=== PATIENT | female | born 1985 ===

== ENCOUNTER 2016-09-21 19:26 | Emergency (ER) | payer OTHER ==
[2016-09-21 19:37] VITALS: BP 132/77; RESP 16; TEMP 98.9; O2SAT 100
[2016-09-21] MEDS ORDERED: Oxycodone/Acetaminophen 5/325 mg Tab PO STA (19:59)
[2016-09-21] MEDS ORDERED: Oxycodone/Acetaminophen 5/325 mg Tab ONE (20:06)
--- NOTE | 2016-09-21 20:09 | ED PDOC ---
Upper Extremity Pain/Injury Time Seen by Provider: 09/21/16 19:41 Chief Complaint (Nursing): Upper Extremity Problem/Injury Chief Complaint (Provider): Right arm pain History Per: Patient History/Exam Limitations: no limitations Onset/Duration Of Symptoms: Days (x3 weeks) Current Symptoms Are (Timing): Still Present Severity: Moderate Pain Scale Rating Of: 4 Additional Complaint(s): Car Espitia is a 31 year old female who presents to the emergency department with a complaint of "shooting" right arm pain associated with constant numbness and tingling sensation radiating from her right hand ongoing for 3 weeks. Denied any swelling, headache, weakness, slurred speech, chest pain or taking medication for symptoms relief. 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 PMD: none provided Past Medical History Reviewed: Historical Data, Nursing Documentation, Vital Signs Vital Signs: Last Vital Signs Temp 98.9 F 09/21/16 19:34 Pulse 92 H 09/21/16 19:34 Resp 16 09/21/16 19:34 BP 132/77 09/21/16 19:34 Pulse Ox 100 09/21/16 19:34 - Medical History PMH: No Chronic Diseases - Surgical History Surgical History: No Surg Hx - Family History Family History: States: Unknown Family Hx - Home Medications Home Medications: Ambulatory Orders Medication Instructions Recorded Methylprednisolone [Medrol Dose 4 mg PO ASDIR #21 mg 09/21/16 Pack (21 tabs)] oxyCODONE/Acetaminophen [Percocet 1 ea PO Q6 PRN #10 tab 09/21/16 5/325 mg Tab] - Allergies Allergies/Adverse Reactions: Allergies Allergy/AdvReac Type Severity Reaction Status Date / Time No Known Allergies Allergy Verified 09/21/16 19:31 Review of Systems ROS Statement: Except As Marked, All Systems Reviewed And Found Negative Cardiovascular: Negative for: Chest Pain Musculoskeletal: Positive for: Arm Pain (right "shooting" pain). Negative for: Other (swelling) Neurological: Positive for: Numbness (and tingling sensation of right hand radiating to right shoulder). Negative for: Weakness, Headache, Other (slurred speech) Physical Exam - Reviewed Nursing Documentation Reviewed: Yes Vital Signs Reviewed: Yes - Physical Exam Appears: Positive for: Well, Non-toxic, No Acute Distress Head Exam: Positive for: ATRAUMATIC, NORMAL INSPECTION, NORMOCEPHALIC Skin: Positive for: Normal Color, Warm, DRY Neck: Positive for: Normal, Painless ROM, Supple Cardiovascular/Chest: Positive for: Regular Rate, Rhythm Respiratory: Positive for: CNT, Normal Breath Sounds Extremity: Positive for: Normal ROM. Negative for: Tenderness, Swelling Neurologic/Psych: Positive for: Alert, transfer and pumphouse operator chief II-XII, Oriented - ECG ECG: Positive for: Interpreted By Me, Viewed By Me ECG Rhythm: Positive for: Normal QRS, Normal ST Segment, Sinus Rhythm. 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 Provider Scribe Attestation: All medical record entries made by the Scribe were at my direction and personally dictated by me. I have reviewed the chart and agree that the record accurately reflects my personal performance of the history, physical exam, medical decision making, and the department course for this patient. I have also personally directed, reviewed, and agree with the discharge instructions and disposition. Disposition - Clinical Impression Clinical Impression: Arm paresthesia, right - Patient ED Disposition Is Patient to be Admitted: No Doctor Will See Patient In The: Office Counseled Patient/Family Regarding: Studies Performed, Diagnosis, Need For Followup - Disposition Referrals: [facility] [Outside] Disposition: Routine/Home Disposition Time: 21:26 Condition: GOOD Additional Instructions: Take medications as instructed. Follow up with your PCP in 2-3 days. Prescriptions: Methylprednisolone [Medrol Dose Pack (21 tabs)] 4 mg PO ASDIR #21 mg oxyCODONE/Acetaminophen [Percocet 5/325 mg Tab] 1 ea PO Q6 PRN #10 tab PRN Reason: Pain, Severe (8-10) Instructions: Paresthesia (ED) Forms: [facility] ED School/Work Excuse Print Language: MALTESE
[2016-09-21 20:43] VITALS: PULSE 75
--- NOTE | 2016-09-22 16:15 | CARD ---
APPROVED REPORT EKG Measurement Heart [id number] <Conclusion> Normal sinus rhythm with sinus arrhythmia Normal ECG
== END 2016-09-21 21:44 | disposition home or self-care (01) ==
LOC: H.ER 19:26
DX: R20.2 Paresthesia of skin (principal)

== ENCOUNTER 2017-09-07 16:22 | Emergency (ER) | payer OTHER ==
[2017-09-07 17:24] VITALS: BP 105/65; PULSE 53; RESP 17; TEMP 98.2; O2SAT 100
--- NOTE | 2017-09-07 19:33 | ED PDOC ---
HPI: Female Pain Time Seen by Provider: 09/07/17 18:36 Chief Complaint (Nursing): Female Genitourinary Chief Complaint (Provider): Vaginal bleeding History Per: Patient History/Exam Limitations: no limitations Onset/Duration Of Symptoms: Days (30 days) Current Symptoms Are (Timing): Still Present Severity: Mild Pain Scale Rating Of: 5 Quality Of Discomfort: Cramping, "Pain" Associated Symptoms: Back Pain. denies: Fever, Chills, Nausea, Vomiting, Diarrhea, Urinary Symptoms Alleviating Factors: None Additional History Per: Patient Additional Complaint(s): a 32 yo female and no PMH present today due to vaginal bleeding that started 30 days ago. Pt state that she is having this heavy vaginal bleed that she need 10 pads a day. Pt state that she is having suprapubic pain that is intermittent occur when she bleed, 5 out of 10, pain is sharp like in . For the past 4 days she is feeling weak and dizzy and feel like she will fall. Pt state that her period is irregular but became worst and heavy in the past 6 month, her period is normally last 10 days and use 10 pads. Pt state that she is sexually active use condom inconsistent. Pt denies headache, change in vision, change in weight, nausea, vomit, diarrhea Chest pain, SOB, polyuria, dysuria, other vaginal discharge or lesions. Past Medical History Vital Signs: Last Vital Signs Temp 98.2 F 09/07/17 17:20 Pulse 53 L 09/07/17 17:20 Resp 17 09/07/17 17:20 BP 105/65 09/07/17 17:20 Pulse Ox 100 09/07/17 17:20 - Medical History PMH: No Chronic Diseases - Family History Family History: States: Unknown Family Hx - Home Medications Home Medications: Ambulatory Orders Medication Instructions Recorded Methylprednisolone [Medrol Dose 4 mg PO ASDIR #21 mg 09/21/16 Pack (21 tabs)] oxyCODONE/Acetaminophen [Percocet 1 ea PO Q6 PRN #10 tab 09/21/16 5/325 mg Tab] - Allergies Allergies/Adverse Reactions: Allergies Allergy/AdvReac Type Severity Reaction Status Date / Time No Known Allergies Allergy Verified 09/21/16 19:31 Review of Systems ROS Statement: Except As Marked, All Systems Reviewed And Found Negative Constitutional: Positive for: Weakness. Negative for: Fever, Chills Eyes: Negative for: Pain, Vision Change Cardiovascular: Negative for: Chest Pain, Palpitations, Light Headedness Respiratory: Negative for: Cough, Shortness of Breath, SOB with Exertion, Pleuritic Pain, Wheezing Gastrointestinal: Negative for: Nausea, Vomiting, Abdominal Pain, Diarrhea Genitourinary Female: Positive for: Vaginal Bleeding, Pelvic Pain. Negative for : Dysuria, Frequency, Incontinence, Hematuria, Vaginal Discharge, Rash Neurological: Positive for: Dizziness Physical Exam - Reviewed Nursing Documentation Reviewed: Yes Vital Signs Reviewed: Yes - Physical Exam Appears: Positive for: Non-toxic, No Acute Distress Head Exam: Positive for: ATRAUMATIC, NORMAL INSPECTION, NORMOCEPHALIC Skin: Positive for: Normal Color, Warm, Dry Eye Exam: Positive for: Normal appearance ENT: Positive for: Normal ENT Inspection Neck: Positive for: Normal Cardiovascular/Chest: Positive for: Regular Rate, Rhythm Respiratory: Positive for: Normal Breath Sounds. Negative for: Crackles, Rales , Rhonchi Gastrointestinal/Abdominal: Positive for: Normal Exam, Bowel Sounds, Soft, Tenderness (suprapubic area). Negative for: Organomegaly, Mass, Distended, Guarding Pelvic Exam: Positive for: External Exam Normal, No Cerv. Motion Tender, Blood, Tender W/Cervical Motion (on left), Other. 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
[2017-09-07 20:17] LABS: BASO # 0.1 K/uL (0.0-0.2); BASO % 0.6 % (0.0-2.0); EOS # 0.2 K/uL (0.0-0.7); EOS % 1.3 % (0.0-4.0); HEMOGLOBIN 13.4 g/dL (12.0-16.0); LYMPH # 3.6 K/uL (1.0-4.3); LYMPH % 29.3 % (20.0-40.0); MEAN CELL VOLUME 87.8 fl (81.0-99.0); MEAN CORPUSCULAR HEMOGLOBIN 29.8 pg (27.0-31.0); MEAN PLATELET VOLUME 8.8 fl (7.2-11.7); MONO # 0.8 K/uL (0.0-0.8); MONO % 6.2 % (0.0-10.0); NEUT # 7.6 K/uL (1.8-7.0); NEUT % 62.6 % (50.0-75.0); NRBC % 0.1 % (0.0-0.0); RBC 4.5 Mil/uL (3.80-5.20); RED CELL DISTRIBUTION WIDTH 13.8 % (11.5-14.5); WHITE BLOOD COUNT 12.2 K/uL (4.8-10.8)
[2017-09-07 20:24] LABS: ALB/GLOB RATIO 1.4 (1.0-2.1); ALBUMIN 4.4 g/dL (3.5-5.0); ALT/SGPT 58 U/L (9-52); AST/SGOT 41 U/L (14-36); BLOOD UREA NITROGEN 17 mg/dl (7-17); CALCIUM 9.7 mg/dL (8.4-10.2); GFR AFRICAN-AMERICAN > 60; GFR NON-AFRICAN AMERICAN > 60
[2017-09-07 20:30] LABS: PARTIAL THROMBOPLASTIN TIME 35.2 Seconds (25.6-37.1); PROTHROMBIN TIME 11.6 Seconds (9.8-13.1)
--- NOTE | 2017-09-08 09:00 | US ---
HISTORY: Suprapubic pain, menorrhagia COMPARISON: None available. TECHNIQUE: Grayscale, color Doppler and spectral evaluation the pelvis performed transvaginally FINDINGS: UTERUS: Measures 6.6 x 4.2 x 4.7 cm. Retroverted. Normal in size and appearance. No fibroid or other mass lesion seen. ENDOMETRIUM: Measures 3 mm in diameter. Unremarkable. CERVIX: No cervical abnormality identified. RIGHT OVARY: Measures 2.8 x 2.1 x 2.4 cm. No solid mass. Normal flow. LEFT OVARY: Measures 2.4 x 1.4 x 2.1 cm. No solid mass. Normal flow. FREE FLUID: No significant free fluid noted. OTHER FINDINGS: None. IMPRESSION: Unremarkable pelvic ultrasound.
== END 2017-09-07 22:47 | disposition home or self-care (01) ==
LOC: H.ER 16:22
DX: N92.0 Excessive and frequent menstruation with regular cycle (principal)

== ENCOUNTER 2017-09-20 16:37 | Emergency (ER) | payer OTHER ==
[2017-09-20 17:08] VITALS: TEMP 98
--- NOTE | 2017-09-20 18:54 | ED PDOC ---
HPI: Female Pain <Jocelyn Porras Y - Last Filed: 09/20/17 19:37> Chief Complaint (Provider): i think i may be History Per: Patient Onset/Duration Of Symptoms: Days Current Symptoms Are (Timing): Still Present Pain Scale Rating Of: 3 Quality Of Discomfort: Cramping Associated Symptoms: Nausea. denies: Vomiting Alleviating Factors: None Additional Complaint(s): 32 yo female with no significant known medical history presented to ED with complaint of suprapubic pain and also states "i don't know if i am or not." Pt states she took 4 preg tests at home, 1 was positive and 3 were negative. C/ o increased vaginal discharge and suprapubic pain. OB hx: , 1 NVD, C/s x2, 3 elective TOP. 1 male partner, uses condoms 70% of the time. Surg: C/s x2, 3 surgical TOP Menarche age 15, irregular periods, LMP 2 weeks ago No chronic medical issues No meds No allergies Denies tobacco alcohol drugs Family hx noncontributory Abnormal Vaginal Bleeding: No Last Menstral Period: 2 weeks ago : 6 Para: 3 Miscarriage: 3 (all 3 elective surg terminations) <Rohini Benitez - Last Filed: 09/20/17 20:10> <Jimmy Calix - Last Filed: 09/21/17 03:07> Time Seen by Provider: 09/20/17 17:29 Chief Complaint (Nursing): Abdominal Pain Supervising Attending Note - Attestation: I have personally seen and examined this patient.: Yes I have fully participated in the care of the patient.: Yes I have reviewed all pertinent clinical information, including history, physical exam and plan: Yes <Jimmy Calix - Last Filed: 09/21/17 03:07> Past Medical History Vital Signs: Last Vital Signs Temp 98.0 F 09/20/17 17:05 Pulse 65 09/20/17 17:05 Resp 18 09/20/17 17:05 BP 112/67 09/20/17 17:05 Pulse Ox 99 09/20/17 19:32 <Jocelyn Porras - Last Filed: 09/20/17 19:37> Vital Signs: Last Vital Signs Temp 98.0 F 09/20/17 17:05 Pulse 65 09/20/17 17:05 Resp 18 09/20/17 17:05 BP 112/67 09/20/17 17:05 Pulse Ox 99 09/20/17 17:05 - Surgical History Surgical History: (x2) Other surgeries: 3 elective TOP - Family History Family History: States: Unknown Family Hx - Social History Alcohol: None Drugs: Denies <Rohini Benitez - Last Filed: 09/20/17 20:10> Vital Signs: Last Vital Signs Temp 98.0 F 09/20/17 20:56 Pulse 80 09/20/17 20:56 Resp 16 09/20/17 20:56 BP 114/64 09/20/17 20:56 Pulse Ox 98 09/20/17 20:56 <Jimmy Calix - Last Filed: 09/21/17 03:07> - Home Medications Home Medications: Ambulatory Orders Medication Instructions Recorded Methylprednisolone [Medrol Dose 4 mg PO ASDIR #21 mg 09/21/16 Pack (21 tabs)] oxyCODONE/Acetaminophen [Percocet 1 ea PO Q6 PRN #10 tab 09/21/16 5/325 mg Tab] Ibuprofen [Motrin Tab] 600 mg PO Q6 #30 tab 09/20/17 - Allergies Allergies/Adverse Reactions: Allergies Allergy/AdvReac Type Severity Reaction Status Date / Time No Known Allergies Allergy Verified 09/21/16 19:31 Review of Systems Constitutional: Negative for: Fever, Chills ENT: Negative for: Throat Pain Cardiovascular: Negative for: Chest Pain, Palpitations Respiratory: Negative for: Cough, Shortness of Breath Gastrointestinal: Positive for: Nausea, Abdominal Pain. Negative for: Vomiting , Diarrhea, Constipation Genitourinary Female: Positive for: Dysuria, Frequency, Vaginal Discharge. Negative for: Hematuria, Vaginal Bleeding <Rohini Benitez - Last Filed: 09/20/17 20:10> Physical Exam - Reviewed Vital Signs Reviewed: Yes - Physical Exam Appears: Positive for: Non-toxic Skin: Positive for: Normal Color, Warm, Dry Eye Exam: Positive for: Normal appearance, PERRL ENT: Positive for: Pharynx Is (clear) Neck: Positive for: Supple Cardiovascular/Chest: Positive for: Regular Rate, Rhythm, Chest Non Tender Respiratory: Positive for: Normal Breath Sounds. Negative for: Accessory Muscle Use, Respiratory Distress Gastrointestinal/Abdominal: Positive for: Bowel Sounds, Soft, Tenderness ( suprapubic) Pelvic Exam: Positive for: External Exam Normal, Speculum Exam Normal, Bimanual Exam Normal, No Cerv. Motion Tender, Discharge, Other (speculum/bimanual exam done with cellophane bag machine operator Fay Ruiz in the room). Negative for: Active Bleeding Back: Negative for: L CVA Tenderness, R CVA Tenderness Extremity: Negative for: Tenderness, Deformity Neurologic/Psych: Positive for: Alert, Oriented, Other (no focal neuro deficits) <Rohini Benitez - Last Filed: 09/20/17 20:10> - Laboratory Results Result Diagrams: 09/20/17 18:45 09/20/17 18:45 <Jocelyn Porras - Last Filed: 09/20/17 19:37> - Laboratory Results Result Diagrams: 09/20/17 18:45 09/20/17 18:45 - ECG O2 Sat by Pulse Oximetry: 99 <Rohini Benitez - Last Filed: 09/20/17 20:10> - Laboratory Results Result Diagrams: 09/20/17 18:45 09/20/17 18:45 <Jimmy Calix - Last Filed: 09/21/17 03:07> Medical Decision Making Medical Decision Making: Patient reports to the ED complaining of suprapubic abdominal pain and is concerned for . She denies any vaginal bleeding. On exam patient has mild suprapubic tenderness <Jocelyn Porras Y - Last Filed: 09/20/17 19:37> Medical Decision Making: - Urine preg - Urine dip - bHCG - GC/CL cultures - UA - CBC - CMP Pelvic exam done with cellophane bag machine operator Fay Ruiz in the room. Exam grossly normal- no blood in vaginal vault, os closed. On bimanual exam, no cervical motion tenderness, adnexa nontender. Suprapubic tenderness as on abdominal exam. Some discharge was noted in vaginal vault, nonpurulent; cultures taken for gonorrhea and chlamydia testing given pt symptoms. - bHCG negative - UA neg nitrates and leuk esterase - C&S pending follow up Pt informed of results; verbalized understanding. Advised to f/u with PMD and OBGYN. Pt was seen/discussed with Dr. Porras and later, Dr. Calix. <Rohini Benitez - Last Filed: 09/20/17 20:10> Disposition <Jocelyn Porras - Last Filed: 09/20/17 19:37> - Patient ED Disposition Is Patient to be Admitted: No - Disposition Disposition: Routine/Home Disposition Time: 20:06 <Rohini Benitez - Last Filed: 09/20/17 20:10> <Jimmy Calix - Last Filed: 09/21/17 03:07> - Clinical Impression Clinical Impression: Abdominal pain - Disposition Referrals: [facility] [Outside] Condition: STABLE Additional Instructions: please follow up with PMD in 2-3 days return to ED if symptoms worsen or there is acute change in status Prescriptions: Ibuprofen [Motrin Tab] 600 mg PO Q6 #30 tab Instructions: Acute Abdomen (Belly Pain) Forms: [facility] (Lithuanian) Print Language: AMHARIC
[2017-09-20 18:59] LABS: BASO # 0.1 K/uL (0.0-0.2); BASO % 0.6 % (0.0-2.0); EOS # 0.2 K/uL (0.0-0.7); EOS % 1.3 % (0.0-4.0); HEMOGLOBIN 13.3 g/dL (12.0-16.0); LYMPH # 3.6 K/uL (1.0-4.3); LYMPH % 27.4 % (20.0-40.0); MEAN CELL VOLUME 88.4 fl (81.0-99.0); MEAN CORPUSCULAR HEMOGLOBIN 29.2 pg (27.0-31.0); MEAN CORPUSCULAR HGB CONC 33.1 g/dL (33.0-37.0); MEAN PLATELET VOLUME 9.1 fl (7.2-11.7); MONO # 0.8 K/uL (0.0-0.8); MONO % 6.4 % (0.0-10.0); NEUT # 8.5 K/uL (1.8-7.0); NEUT % 64.3 % (50.0-75.0); RBC 4.55 Mil/uL (3.80-5.20); RED CELL DISTRIBUTION WIDTH 13.2 % (11.5-14.5); WHITE BLOOD COUNT 13.2 K/uL (4.8-10.8)
[2017-09-20 19:01] LABS: SQUAMOUS EPITHIAL 5 /hpf (0-5); URINE BACTERIA RARE (<OCC); URINE BILIRUBIN NEGATIVE (NEGATIVE); URINE BLOOD NEGATIVE (NEGATIVE); URINE CLARITY SLIGHTY-CLOUDY (Clear); URINE COLOR STRAW (YELLOW); URINE GLUCOSE (UA) NEG (Normal); URINE LEUKOCYTE ESTERASE NEG Leu/uL (Negative); URINE PROTEIN NEGATIVE (NEGATIVE); URINE UROBILINOGEN 0.2-1.0 mg/dL (0.2-1.0)
[2017-09-20 19:16] LABS: ALB/GLOB RATIO 1.3 (1.0-2.1); ALBUMIN 4.5 g/dL (3.5-5.0); ALT/SGPT 27 U/L (9-52); AST/SGOT 23 U/L (14-36); BLOOD UREA NITROGEN 14 mg/dl (7-17); CALCIUM 9.5 mg/dL (8.4-10.2); GFR AFRICAN-AMERICAN > 60; GFR NON-AFRICAN AMERICAN > 60
[2017-09-20 20:57] VITALS: BP 114/64; PULSE 80; RESP 16; O2SAT 98
== END 2017-09-20 20:56 | disposition home or self-care (01) ==
LOC: H.ER 16:37
DX: O26.899 Other specified pregnancy related conditions, unspecified trimester (principal)

== ENCOUNTER 2017-11-19 16:57 | Emergency (ER) | payer MEDICAID, OTHER ==
[2017-11-19 17:24] VITALS: O2SAT 98
[2017-11-19] MEDS ORDERED: Lactated Ringer's 1,000 ML IV STA (17:52)
--- NOTE | 2017-11-19 18:35 | ED PDOC ---
HPI: Female Pain Time Seen by Provider: 11/19/17 17:38 Chief Complaint (Nursing): Female Genitourinary Chief Complaint (Provider): Female Genitourinary History Per: Patient History/Exam Limitations: no limitations Onset/Duration Of Symptoms: Days (x7) Current Symptoms Are (Timing): Still Present Additional Complaint(s): 32 y/o female with a PMHx of and 3 elective termination presents to the ED for evaluation of vaginal spotting, onset 7 days ago. Patient states that last week she noticed brown spotting that has been less than one pad a day but additionally states today it was more bright red. Patient reports of taking a test today and found that she was . Patient states that she has only felt lower abdominal swelling and urinary frequency, symptom barrow. Denies nausea, vomiting, breast discomfort and dysuria. PMD: No Provider LNMP: Earlier this month (Patient states periods are irregular) Abnormal Vaginal Bleeding: Yes Last Menstral Period: Earlier this month : 7 Para: 3 Past Medical History Reviewed: Historical Data, Nursing Documentation, Vital Signs Vital Signs: Last Vital Signs Temp 98.7 F 11/19/17 17:22 Pulse 70 11/19/17 17:22 Resp 16 11/19/17 17:22 BP 110/72 11/19/17 17:22 Pulse Ox 98 11/19/17 17:22 - Medical History PMH: No Chronic Diseases - Surgical History Surgical History: (x2) - Family History Family History: States: Unknown Family Hx - Social History Current smoker - smoking cessation education provided: No Alcohol: None Drugs: Denies - Home Medications Home Medications: Ambulatory Orders Medication Instructions Recorded Methylprednisolone [Medrol Dose 4 mg PO ASDIR #21 mg 09/21/16 Pack (21 tabs)] oxyCODONE/Acetaminophen [Percocet 1 ea PO Q6 PRN #10 tab 09/21/16 5/325 mg Tab] Ibuprofen [Motrin Tab] 600 mg PO Q6 #30 tab 09/20/17 - Allergies Allergies/Adverse Reactions: Allergies Allergy/AdvReac Type Severity Reaction Status Date / Time No Known Allergies Allergy Verified 09/21/16 19:31 Review of Systems ROS Statement: Except As Marked, All Systems Reviewed And Found Negative (as per HPI) Gastrointestinal: Negative for: Nausea, Vomiting Genitourinary Female: Positive for: Vaginal Bleeding (Spotting). Negative for: Dysuria Physical Exam - Reviewed Nursing Documentation Reviewed: Yes Vital Signs Reviewed: Yes - Physical Exam Appears: Positive for: Non-toxic, No Acute Distress Skin: Positive for: Warm, Dry Eye Exam: Positive for: EOMI ENT: Positive for: Normal ENT Inspection Neck: Positive for: Painless ROM, Supple Cardiovascular/Chest: Positive for: Regular Rate, Rhythm. Negative for: Murmur Respiratory: Positive for: Normal Breath Sounds. Negative for: Wheezing Gastrointestinal/Abdominal: Positive for: Normal Exam, Soft, Tenderness (mild tenderness to palpation in the suprapubic region), Distended (mild distention). Negative for: Mass, Guarding, Rebound Back: Positive for: Normal Inspection. Negative for: Muscle Spasm Extremity: Positive for: Normal ROM. Negative for: Deformity Lymphatic: Negative for: Adenopathy Neurologic/Psych: Positive for: Alert. Negative for: Motor/Sensory Deficits - Laboratory Results Result Diagrams: 11/19/17 18:42 - ECG O2 Sat by Pulse Oximetry: 98 (RA) Pulse Ox Interpretation: Normal Medical Decision Making Medical Decision Making: Time: 1754 Impression: Vaginal bleeding and Differentials include but not limited to threatened miscarriage, vaginitis, extopic , UTI and dehydration Plan: -- Type and Screen -- Beta-HCG, Quantitative -- ED Urine -- ED Urine Dipstick -- CBC with differentials -- Chlamydia/GC RNA, TNA -- Lactated Ringer's IV 1000 mls/hr -- IV Insertion -- US OB Transvaginal EXAM: US , Transvaginal CLINICAL HISTORY: The patient is a 32 years female; Signs and symptoms; Lmp or gestational age ( in weeks): Unknown; Other: [place]; Additional info: Early preg vag bleed R/O ectopic 11/19/2017 5: 51 PM TECHNIQUE: Real-time transvaginal obstetrical ultrasound of the maternal pelvis and a first trimester with image documentation. Transvaginal imaging was used for better evaluation of the fetus and adnexa. COMPARISON: No relevant prior studies available. FINDINGS: Gestation: Endometrium thickness measures 8 mm. No intrauterine is identified. Uterus/cervix: Retroverted uterus. Cervix is closed and measures 3.1 cm. Ovaries: Both ovaries are normal in size and demonstrate vascular flow. 4 decrease noted in the left ovary. 0.9 x 0.7 cm right paraovarian cystic structure. Free fluid: No free fluid. IMPRESSION: Endometrium thickness measures 8 mm. No intrauterine is identified. Thank you for allowing us to participate in the care of your patient. Dictated and Authenticated by: Oseas Hernandez MD 11/19/2017 8:39 PM Eastern Time ([place]) betahcg 18 Findings c/w either very early or early miscarriage. DW pt findings and need to return to ER to repeat blood work. Advised that symptoms maybe consistent with miscarriage or early Scribe Attestation: Documented by Justin Serrato acting as a scribe for Judit Turner MD. Provider Scribe Attestation: All medical record entries made by the Scribe were at my direction and personally dictated by me. I have reviewed the chart and agree that the record accurately reflects my personal performance of the history, physical exam, medical decision making, and the department course for this patient. I have also personally directed, reviewed, and agree with the discharge instructions and disposition. Disposition - Clinical Impression Clinical Impression: Threatened miscarriage Counseled Patient/Family Regarding: Studies Performed, Diagnosis - Disposition [facility] Disposition: Routine/Home Disposition Time: 20:58 Condition: STABLE Additional Instructions: REGRESA EN 2-3 JACKSON A REPITAR TOVAR ANALISIS DE FARTUN Instructions: Threatened Miscarriage (DC) Print Language: ROMANSH
[2017-11-19 19:06] LABS: BASO # 0.1 K/uL (0.0-0.2); BASO % 0.6 % (0.0-2.0); EOS # 0.1 K/uL (0.0-0.7); EOS % 0.8 % (0.0-4.0); HEMOGLOBIN 13.1 g/dL (12.0-16.0); LYMPH # 3.7 K/uL (1.0-4.3); LYMPH % 26.5 % (20.0-40.0); MEAN CELL VOLUME 88.3 fl (81.0-99.0); MEAN CORPUSCULAR HEMOGLOBIN 29.1 pg (27.0-31.0); MEAN PLATELET VOLUME 8.8 fl (7.2-11.7); MONO # 0.9 K/uL (0.0-0.8); MONO % 6.7 % (0.0-10.0); NEUT # 9.1 K/uL (1.8-7.0); NEUT % 65.4 % (50.0-75.0); NRBC % 0.1 % (0.0-0.0); RBC 4.51 Mil/uL (3.80-5.20); RED CELL DISTRIBUTION WIDTH 13.2 % (11.5-14.5)
[2017-11-19 21:15] VITALS: BP 122/74; PULSE 63; RESP 17; TEMP 97.6
--- NOTE | 2017-11-20 11:29 | US ---
Date of service: 11/19/2017 HISTORY: early preg vag bleed r/o ectopic COMPARISON: None available. TECHNIQUE: Transvaginal pelvic ultrasound was performed. FINDINGS: UTERUS: Measures 6.6 x 4.0 x 4.7 cm. Retroverted, normal in size and appearance. No fibroid or other mass lesion seen. ENDOMETRIUM: Measures 8.0 mm in diameter. No evidence of intrauterine gestation. CERVIX: No cervical abnormality identified. RIGHT OVARY: Measures 2.6 x 1.7 x 2.3 cm. No solid mass. Normal flow. LEFT OVARY: Measures 2.3 x 1.9 x 2.4 cm. No solid mass. Normal flow. FREE FLUID: No significant free fluid noted. OTHER FINDINGS: None. IMPRESSION: No evidence of intrauterine gestation. Retroverted uterus and normal appearance of the central endometrial echo complex. No adnexal mass or free fluid in the pelvis.
== END 2017-11-19 21:10 | disposition home or self-care (01) ==
LOC: H.ER 16:57
DX: O03.9 Complete or unspecified spontaneous abortion without complication (principal)
CPT/HCPCS: 76817; 81025; 84702; 85025; 86850; 86900; 87491; 87591; 96360; 99284; J7120

== ENCOUNTER 2017-11-22 17:21 | Emergency (ER) | payer MEDICAID ==
[2017-11-22 17:41] VITALS: BP 106/69; PULSE 73; RESP 18; TEMP 98.8; O2SAT 100
--- NOTE | 2017-11-22 17:51 | ED PDOC ---
HPI: General Adult Time Seen by Provider: 11/22/17 17:41 Chief Complaint (Nursing): Female Genitourinary Chief Complaint (Provider): repeat bloodwork History Per: Patient History/Exam Limitations: no limitations Onset/Duration Of Symptoms: Days Additional Complaint(s): Car Espitia is a 32 year old female, with no significant past medical history, who presents to the emergency department for repeat bloodwork s/p visit on 11/19/17 for vaginal spotting/bleeding with positive test and Beta quant of 18 with no IUP seen on ultrasound. Patient is A3 with x3 elective terminations. Pt. denies any abdominal pain. Pt. reports light vag. spotting, only noted when wiping after urination. Pt. has clinic f/u arranged 11/24/17 and 11/27/17 for repeat beta hcg quant (brings paperwork with her). No further medical complaints. PMD: None provided. Past Medical History Reviewed: Historical Data, Nursing Documentation, Vital Signs Vital Signs: Last Vital Signs Temp 98.8 F 11/22/17 17:39 Pulse 73 11/22/17 17:39 Resp 18 11/22/17 17:39 BP 106/69 11/22/17 17:39 Pulse Ox 100 11/22/17 19:30 - Medical History PMH: No Chronic Diseases - Surgical History Surgical History: (x2) - Family History Family History: States: Unknown Family Hx - Home Medications Home Medications: Ambulatory Orders Medication Instructions Recorded Methylprednisolone [Medrol Dose 4 mg PO ASDIR #21 mg 09/21/16 Pack (21 tabs)] oxyCODONE/Acetaminophen [Percocet 1 ea PO Q6 PRN #10 tab 09/21/16 5/325 mg Tab] Ibuprofen [Motrin Tab] 600 mg PO Q6 #30 tab 09/20/17 21/Iron Fu/Folic Acid 1 each PO DAILY #1 packet 11/19/17 [ Complete Caplet] - Allergies Allergies/Adverse Reactions: Allergies Allergy/AdvReac Type Severity Reaction Status Date / Time No Known Allergies Allergy Verified 11/22/17 17:39 Review of Systems ROS Statement: Except As Marked, All Systems Reviewed And Found Negative Genitourinary Female: Positive for: Vaginal Bleeding Physical Exam - Reviewed Nursing Documentation Reviewed: Yes Vital Signs Reviewed: Yes - Physical Exam Appears: Positive for: No Acute Distress Head Exam: Positive for: ATRAUMATIC, NORMOCEPHALIC Skin: Positive for: Normal Color, Warm, Dry Eye Exam: Positive for: Normal appearance Neck: Positive for: Painless ROM Cardiovascular/Chest: Positive for: Regular Rate, Rhythm. Negative for: Murmur Respiratory: Positive for: Normal Breath Sounds. Negative for: Respiratory Distress Gastrointestinal/Abdominal: Positive for: Normal Exam, Soft. Negative for: Tenderness Extremity: Positive for: Normal ROM (upper and lower extremities). Negative for: Deformity Neurologic/Psych: Positive for: Alert, Oriented - Laboratory Results Result Diagrams: 11/22/17 18:10 11/22/17 18:10 - ECG O2 Sat by Pulse Oximetry: 100 (RA) Pulse Ox Interpretation: Normal Medical Decision Making Medical Decision Making: Time: 17:41 Initial Impression: repeat bloodwork Initial Plan: --Beta-HCG, Quantitative --CMP --Urine 19:00 -Patient's Beta 18 (11/19/17)---->26 (today), no pain, no utility TVUS. Explained in depth to pt. (in vietnamese) w. ectopic precautions, betas needed to be trended and she has f/u in place for repeat labs next week. Patient denies any pain or significant vaginal bleeding. Patient instructed to follow up with scheduled appointment on the and for repeat bloodwork. Patient advised to return of symptoms persist or worsen. Scribe Attestation: Documented by Aurelio Jeffers, acting as a scribe for Oly Herrera PA-C Provider Scribe Attestation: All medical record entries made by the Scribe were at my direction and personally dictated by me. I have reviewed the chart and agree that the record accurately reflects my personal performance of the history, physical exam, medical decision making, and the department course for this patient. I have also personally directed, reviewed, and agree with the discharge instructions and disposition. Disposition - Clinical Impression Clinical Impression: Threatened - Patient ED Disposition Is Patient to be Admitted: No Doctor Will See Patient In The: Office - Disposition Disposition: Routine/Home Disposition Time: 19:23 Condition: STABLE Additional Instructions: Follow up in clinic as previously scheduled 11/24/17 and 11/27/17. Return to ED sooner if abdominal pain, increased bleeding or other concerns Instructions: Bleeding With (DC) Forms: [employer] (Argentine), [employer] (Brazilian), Inpatient D/C Instruction Print Language: SETSWANA
[2017-11-22 18:23] LABS: BASO # 0.1 K/uL (0.0-0.2); BASO % 0.4 % (0.0-2.0); EOS # 0.1 K/uL (0.0-0.7); EOS % 1.1 % (0.0-4.0); LYMPH # 3.1 K/uL (1.0-4.3); LYMPH % 23.6 % (20.0-40.0); MEAN CELL VOLUME 87.4 fl (81.0-99.0); MEAN CORPUSCULAR HEMOGLOBIN 29.3 pg (27.0-31.0); MEAN CORPUSCULAR HGB CONC 33.5 g/dL (33.0-37.0); MEAN PLATELET VOLUME 8.7 fl (7.2-11.7); MONO # 0.8 K/uL (0.0-0.8); MONO % 6.4 % (0.0-10.0); NEUT % 68.5 % (50.0-75.0); RBC 4.77 Mil/uL (3.80-5.20); RED CELL DISTRIBUTION WIDTH 13.1 % (11.5-14.5); WHITE BLOOD COUNT 13.1 K/uL (4.8-10.8)
[2017-11-22 18:31] LABS: ALB/GLOB RATIO 1.2 (1.0-2.1); ALBUMIN 4.4 g/dL (3.5-5.0); ALT/SGPT 28 U/L (9-52); AST/SGOT 25 U/L (14-36); BLOOD UREA NITROGEN 12 mg/dl (7-17); CALCIUM 9.3 mg/dL (8.4-10.2); GFR NON-AFRICAN AMERICAN > 60
== END 2017-11-22 19:25 | disposition home or self-care (01) ==
LOC: H.ER 17:21
DX: O20.0 Threatened abortion (principal)

== ENCOUNTER 2017-12-12 17:04 | Emergency (ER) | payer MEDICAID ==
[2017-12-12 19:29] LABS: BASO # 0.1 K/uL (0.0-0.2); BASO % 0.6 % (0.0-2.0); EOS # 0.1 K/uL (0.0-0.7); EOS % 0.7 % (0.0-4.0); HEMOGLOBIN 13.2 g/dL (12.0-16.0); LYMPH # 3.4 K/uL (1.0-4.3); LYMPH % 22.8 % (20.0-40.0); MEAN CELL VOLUME 88.4 fl (81.0-99.0); MEAN CORPUSCULAR HEMOGLOBIN 29.9 pg (27.0-31.0); MEAN CORPUSCULAR HGB CONC 33.8 g/dL (33.0-37.0); MEAN PLATELET VOLUME 8.5 fl (7.2-11.7); MONO # 1.1 K/uL (0.0-0.8); MONO % 7.5 % (0.0-10.0); NEUT # 10.1 K/uL (1.8-7.0); NEUT % 68.4 % (50.0-75.0); RBC 4.42 Mil/uL (3.80-5.20); RED CELL DISTRIBUTION WIDTH 13.1 % (11.5-14.5); WHITE BLOOD COUNT 14.7 K/uL (4.8-10.8)
[2017-12-12 19:38] LABS: BLOOD UREA NITROGEN 14 mg/dl (7-17); GFR NON-AFRICAN AMERICAN > 60
[2017-12-12 19:39] LABS: ALB/GLOB RATIO 1.2 (1.0-2.1); ALBUMIN 4.4 g/dL (3.5-5.0); ALT/SGPT 29 U/L (9-52); AST/SGOT 25 U/L (14-36); CALCIUM 9.7 mg/dL (8.4-10.2)
--- NOTE | 2017-12-12 19:45 | ED PDOC ---
HPI: Female Pain Time Seen by Provider: 12/12/17 17:41 Chief Complaint (Nursing): Female Genitourinary Chief Complaint (Provider): Vag bleeding History Per: Patient History/Exam Limitations: no limitations Additional Complaint(s): Pt presents with abdominal pain and vag spotting X 3 weeks. Denies fever, nausea, vomiting, constipation, diarrhea, dysuria. Abnormal Vaginal Bleeding: Yes Past Medical History Reviewed: Nursing Documentation, Vital Signs Vital Signs: Last Vital Signs Temp 98.5 F 12/12/17 17:18 Pulse 65 12/12/17 17:18 Resp 16 12/12/17 17:18 BP 112/65 12/12/17 17:18 Pulse Ox 100 12/12/17 17:18 - Medical History PMH: No Chronic Diseases - Surgical History Surgical History: (x2) - Family History Family History: States: Unknown Family Hx - Social History Current smoker - smoking cessation education provided: No Alcohol: None - Home Medications Home Medications: Ambulatory Orders Medication Instructions Recorded Methylprednisolone [Medrol Dose 4 mg PO ASDIR #21 mg 09/21/16 Pack (21 tabs)] oxyCODONE/Acetaminophen [Percocet 1 ea PO Q6 PRN #10 tab 09/21/16 5/325 mg Tab] Ibuprofen [Motrin Tab] 600 mg PO Q6 #30 tab 09/20/17 21/Iron Fu/Folic Acid 1 each PO DAILY #1 packet 11/19/17 [ Complete Caplet] - Allergies Allergies/Adverse Reactions: Allergies Allergy/AdvReac Type Severity Reaction Status Date / Time No Known Allergies Allergy Verified 12/12/17 17:17 Review of Systems ROS Statement: Except As Marked, All Systems Reviewed And Found Negative Gastrointestinal: Positive for: Abdominal Pain Genitourinary Female: Positive for: Vaginal Bleeding Physical Exam - Reviewed Nursing Documentation Reviewed: Yes Vital Signs Reviewed: Yes - Physical Exam Appears: Positive for: Well, No Acute Distress Skin: Positive for: Normal Color, Warm, Dry Eye Exam: Positive for: Normal appearance, EOMI, PERRL Cardiovascular/Chest: Positive for: Regular Rate, Rhythm Respiratory: Positive for: Normal Breath Sounds Gastrointestinal/Abdominal: Positive for: Bowel Sounds, Soft, Tenderness (Mild suprapubic). Negative for: Distended, Guarding, Rebound Back: Positive for: Normal Inspection Extremity: Positive for: Normal ROM Neurologic/Psych: Positive for: Alert, Oriented - Laboratory Results Result Diagrams: 12/12/17 19:20 12/12/17 19:20 - ECG O2 Sat by Pulse Oximetry: 100 Medical Decision Making Medical Decision Makin yo female with abdominal pain and vaginal spotting. - labs - pelvic ultrasound 23:[address] Bhakta, recommends repeat beta hCG in 2 days. OB TRANSVAGINAL US RESULTS Findings Uterus Retroverted. Normal in size. No fibroid or other mass lesion seen. Endometrium Unremarkable. Cervix No cervical abnormality identified. Right ovary Measures 2.9 x 1.9 x 2.7 cm. Right adnexal paraovarian cystic structure measures 1.5 x 0.9 x 0.8 cm. Left ovary Measures 3.7 x 1.7 x 3.1 cm. No solid mass. Normal flow. Free fluid Free fluid noted in the cul-de-sac. Other Findings No gestational sac, yolk sac, pole or heart motion is identified. Impression 1. No gestational sac, yolk sac, pole or heart motion is identified. 2. Free fluid noted in the cul-de-sac. 3. Retroverted uterus. 4. Right adnexal paraovarian cystic structure measures 1.5 x 0.9 x 0.8 cm most consistent with a paraovarian cyst. Electronically signed on Dec 12, 2017 7:53:25 PM EDT by: Justin Cardenas M.D., J LUIS Certified By [facility] Fellowship Trained MRI and CT Specialist Disposition - Clinical Impression Clinical Impression: Threatened - Patient ED Disposition Is Patient to be Admitted: No Counseled Patient/Family Regarding: Studies Performed, Diagnosis - Disposition Disposition: Routine/Home Disposition Time: 23:01 Condition: GOOD Additional Instructions: REGRESE AQUI EN 2 JACKSON PARA REPETIR BETA HCG. Instructions: Threatened Miscarriage Forms: [employer] (Kyrgyz) Print Language: MALIAN
[2017-12-12 19:49] LABS: SQUAMOUS EPITHIAL < 1 /hpf (0-5); URINE BILIRUBIN NEGATIVE (NEGATIVE); URINE CLARITY SLIGHTY-CLOUDY (Clear); URINE COLOR YELLOW (YELLOW); URINE GLUCOSE (UA) NEG (Normal); URINE LEUKOCYTE ESTERASE NEG Leu/uL (Negative); URINE PROTEIN NEGATIVE (NEGATIVE); URINE UROBILINOGEN 0.2-1.0 mg/dL (0.2-1.0)
[2017-12-12 19:50] LABS: URINE BLOOD NEGATIVE (NEGATIVE)
[2017-12-12 23:31] VITALS: BP 102/61; PULSE 68; RESP 18; TEMP 98.7
--- NOTE | 2017-12-13 13:43 | US ---
Date of service: 12/12/2017 PROCEDURE: Pelvic ultrasound examination HISTORY: Abd pain COMPARISON: Not available TECHNIQUE: Transvaginal FINDINGS: The uterus is retroverted. It measures 7.8 x 5.1 x 5.4 cm. There is no uterine mass. The endometrium measures 7 mm in width. There is no endometrial fluid. There is no intrauterine gestational sac identified. The right ovary measures 2.9 x 1.9 x 2.7 cm. Normal blood flow is demonstrated. There is a para ovarian irregularly thick walled cystic structure measuring 0.9 x 0.8 x 1.5 cm. This may represent a para ovarian cyst but the thick wall of this structure is atypical. No peripheral hypervascularity is demonstrated to suggest an ectopic gestation. Nevertheless, please correlate with beta HCG evaluation. This was unavailable at the time of this examination. The left ovary measures 1.7 x 3.1 x 3.7 cm. No mass identified. Normal blood flow demonstrated. There is complex fluid in the cul-de-sac with some intermediate level diffuse echoes. This is suspicious for blood. This raises some suspicion for ruptured ectopic . Again, correlation is suggested with clinical and laboratory evaluation. IMPRESSION: Complex fluid in cul-de-sac raises suspicion of blood. Alternatively, this could represent postinfectious or postinflammatory debris. Irregularly thick walled cystic right at para ovarian structure, 8 x 9 x 15 mm without peripheral hypervascularity. Atypical for ectopic gestation. Please correlate with beta HCG evaluation. No additional abnormality. The preliminary findings for this examination were reported by [facility] at 7:53 p.m. on 12/12/2017. There is discordance of this report with the preliminary findings. Presence of complex fluid in cul-de-sac was not described in the preliminary report of this examination. This complexity of this fluid raises suspicion of hemoperitoneum. This may be seen in conjunction with ruptured ectopic and clinical and laboratory correlation is advised. Findings were discussed by telephone with Dr. James in the emergency department at 10:08 a.m. on 12/13/2017.
[2017-12-24 20:15] VITALS: O2SAT 100
== END 2017-12-12 23:30 | disposition home or self-care (01) ==
LOC: H.ER 17:04
DX: O20.0 Threatened abortion (principal)

== ENCOUNTER 2017-12-13 13:44 | Emergency (ER) | payer MEDICAID ==
[2017-12-13 14:11] VITALS: O2SAT 98
--- NOTE | 2017-12-13 14:45 | ED PDOC ---
HPI: Female Pain Time Seen by Provider: 12/13/17 14:27 Chief Complaint (Nursing): Abnormal Labs History Per: Patient Additional Complaint(s): 32 yo [place], no PMH, Pt seen and evaluated in the ED yesterday and diagnosed with threatened AB, patient contacted after radiology official read of complex fluid in pelvis w cystic structure ovary, rec repeat US and bloodwork within 24 hrs. Case discussed in Gambian via [employer] [employer]. Patient feels ok, denies active pain, +bleeding. Past Medical History Reviewed: Nursing Documentation, Vital Signs Vital Signs: Last Vital Signs Temp 98.7 F 12/13/17 14:09 Pulse 87 12/13/17 14:09 Resp 16 12/13/17 14:09 BP 116/72 12/13/17 14:09 Pulse Ox 98 12/13/17 14:09 - Medical History PMH: No Chronic Diseases - Surgical History Surgical History: - Family History Family History: States: Unknown Family Hx - Living Arrangements Living Arrangements: With Family - Social History Current smoker - smoking cessation education provided: No Alcohol: None Drugs: Denies - Home Medications Home Medications: Ambulatory Orders Medication Instructions Recorded Methylprednisolone [Medrol Dose 4 mg PO ASDIR #21 mg 09/21/16 Pack (21 tabs)] oxyCODONE/Acetaminophen [Percocet 1 ea PO Q6 PRN #10 tab 09/21/16 5/325 mg Tab] Ibuprofen [Motrin Tab] 600 mg PO Q6 #30 tab 09/20/17 21/Iron Fu/Folic Acid 1 each PO DAILY #1 packet 11/19/17 [ Complete Caplet] - Allergies Allergies/Adverse Reactions: Allergies Allergy/AdvReac Type Severity Reaction Status Date / Time No Known Allergies Allergy Verified 12/12/17 17:17 Review of Systems ROS Statement: Except As Marked, All Systems Reviewed And Found Negative Genitourinary Female: Positive for: Vaginal Bleeding Physical Exam - Reviewed Nursing Documentation Reviewed: Yes Vital Signs Reviewed: Yes - Physical Exam Appears: Positive for: Well, Non-toxic, No Acute Distress Head Exam: Positive for: ATRAUMATIC, NORMAL INSPECTION, NORMOCEPHALIC Skin: Positive for: Normal Color, Warm, DRY Eye Exam: Positive for: EOMI, Normal appearance, PERRL ENT: Positive for: Normal ENT Inspection Neck: Positive for: Normal, Painless ROM Cardiovascular/Chest: Positive for: Regular Rate, Rhythm Respiratory: Positive for: CNT, Normal Breath Sounds Gastrointestinal/Abdominal: Positive for: Normal Exam, Soft Pelvic Exam: Positive for: External Exam Normal, Speculum Exam Normal, Active Bleeding (minimal). Negative for: No Cerv. Motion Tender, No Masses, Blood Back: Positive for: Normal Inspection Extremity: Positive for: Normal ROM Neurologic/Psych: Positive for: Alert, Oriented - Laboratory Results Result Diagrams: 12/13/17 15:10 - ECG O2 Sat by Pulse Oximetry: 98 Medical Decision Making Medical Decision Making: Beta 71 on 12/12, 66 at todays visit Blood type O+ IMPRESSION: No evidence of intrauterine gestation/intrauterine products of conception. Persistent free fluid in the pelvis. Hyperechoic mass left adnexa. Overall no appreciable interval change. D/w OB on-call, Dr. Martínez, who advised Pt stable for discharge at this time. Repeat Beta in 2 weeks. Pt understands instructions and feels well enough to leave ED. Disposition - Clinical Impression Clinical Impression: Spontaneous - Patient ED Disposition Is Patient to be Admitted: No - Disposition Disposition: Routine/Home Disposition Time: 17:31 Condition: STABLE Instructions: Miscarriage Forms: [employer] (Gambian) Print Language: VIETNAMESE
[2017-12-13 15:21] LABS: MEAN CELL VOLUME 88.5 fl (81.0-99.0); MEAN CORPUSCULAR HEMOGLOBIN 29.4 pg (27.0-31.0); MEAN CORPUSCULAR HGB CONC 33.2 g/dL (33.0-37.0); RBC 4.41 Mil/uL (3.80-5.20); RED CELL DISTRIBUTION WIDTH 13.5 % (11.5-14.5); WHITE BLOOD COUNT 12.3 K/uL (4.8-10.8)
--- NOTE | 2017-12-13 17:19 | US ---
Date of service: 12/13/2017 HISTORY: Questionable ectopic gestation Beta HCG results: Unknown. COMPARISON: 11/19/2017 and 12/12/2017 TECHNIQUE: Transvaginal only. Real -time technique with 2D, duplex and color Doppler FINDINGS: UTERUS: Measures 5.1 x 6.1 x 6.4 cm. Normal in size and appearance. No fibroid or other mass lesion seen. ENDOMETRIUM: Measures 5.2 mm in diameter. No ultrasound findings to suggest gestational sac, fluid, debris, mass or polyp or other pathologic process within the endometrium. CERVIX: No cervical abnormality identified. RIGHT OVARY: Measures 1.3 x 2.3 x 2.7 cm. No solid mass. Normal flow. Simple cyst 0.7 x 0.8 x 1.0 cm. LEFT OVARY: Measures 1.5 x 2.5 x 2.5 cm. Complex solid mix primarily hyperechoic mass 1.6 x 1.7 cm. This represents a stable finding compared to the most recent study. Normal flow. FREE FLUID: Demonstration of free fluid in the cul-de-sac. OTHER FINDINGS: None. IMPRESSION: No evidence of intrauterine gestation/intrauterine products of conception. Persistent free fluid in the pelvis. Hyperechoic mass left adnexa. Overall no appreciable interval change.
[2017-12-13 17:46] VITALS: BP 126/78; PULSE 78; RESP 19; TEMP 97
== END 2017-12-13 17:46 | disposition home or self-care (01) ==
LOC: H.ER 13:44
DX: O03.9 Complete or unspecified spontaneous abortion without complication (principal)

== ENCOUNTER 2018-03-05 14:32 | Emergency (ER) | payer MEDICAID ==
[2018-03-05 14:52] VITALS: BP 118/83; PULSE 82; RESP 18; TEMP 99; O2SAT 99
[2018-03-05] MEDS ORDERED: Lidocaine 5% Patch TD STA (15:10)
[2018-03-05] MEDS ORDERED: Lidocaine 5% Patch TD ONE (15:20)
--- NOTE | 2018-03-05 15:24 | ED PDOC ---
HPI: Back Time Seen by Provider: 03/05/18 15:01 Chief Complaint (Nursing): Female Genitourinary Chief Complaint (Provider): back pain History Per: Patient History/Exam Limitations: no limitations Onset/Duration Of Symptoms: Gradual (x2 weeks), Worse Since (last week) Current Symptoms Are (Timing): Still Present Additional Complaint(s): 33 year old female with no significant pmHx, presents to ED for gradual onset of lower back pain ongoing for 2 weeks but worsen since last week. She reports pain is localized in her lower, midline spine and radiates to bilateral buttocks with urine frequency and nausea. Pain is exacerbated at night, in which, she takes Ibuprofen with minimal relief. Patient denies abdominal pain, trauma, falls, injury, hematuria, dysuria, vomiting, diarrhea, constipation, weakness, numbness, incontinence, fever, chills, night sweats, unintentional weight loss, or radiation of pain to the front. PCP: none provided Past Medical History Reviewed: Historical Data, Nursing Documentation, Vital Signs Vital Signs: Last Vital Signs Temp 99.0 F 03/05/18 14:49 Pulse 82 03/05/18 14:49 Resp 18 03/05/18 14:49 BP 118/83 03/05/18 14:49 Pulse Ox 99 03/05/18 14:49 - Medical History PMH: No Chronic Diseases - Surgical History Surgical History: (x2) - Family History Family History: States: No Known Family Hx - Social History Alcohol: Occasional Drugs: Denies - Home Medications Home Medications: Ambulatory Orders Medication Instructions Recorded Methylprednisolone [Medrol Dose 4 mg PO ASDIR #21 mg 09/21/16 Pack (21 tabs)] oxyCODONE/Acetaminophen [Percocet 1 ea PO Q6 PRN #10 tab 09/21/16 5/325 mg Tab] RX: Ibuprofen [Motrin Tab] 600 mg PO Q6 #30 tab 09/20/17 21/Iron Fu/Folic Acid 1 each PO DAILY #1 packet 11/19/17 [ Complete Caplet] Cyclobenzaprine [Flexeril] 5 mg PO Q8 PRN #10 tab 03/05/18 Lidocaine 5% [Lidoderm] 1 ea TD DAILY PRN #10 patch 03/05/18 RX: Ibuprofen [Motrin Tab] 600 mg PO Q8 PRN #30 tab 03/05/18 - Allergies Allergies/Adverse Reactions: Allergies Allergy/AdvReac Type Severity Reaction Status Date / Time No Known Allergies Allergy Verified 12/12/17 17:17 Review of Systems ROS Statement: Except As Marked, All Systems Reviewed And Found Negative Constitutional: Negative for: Fever, Chills, Sweats, Weight loss Gastrointestinal: Positive for: Nausea. Negative for: Vomiting, Abdominal Pain, Diarrhea, Constipation Genitourinary Female: Positive for: Frequency. Negative for: Dysuria, Incontinence, Hematuria Musculoskeletal: Positive for: Back Pain (lower, midline radiating to bilateral buttocks) Neurological: Negative for: Weakness, Numbness Physical Exam - Reviewed Nursing Documentation Reviewed: Yes Vital Signs Reviewed: Yes - Physical Exam Appears: Positive for: Well, Non-toxic, No Acute Distress Head Exam: Positive for: ATRAUMATIC, NORMAL INSPECTION, NORMOCEPHALIC Skin: Positive for: Normal Color, Warm, Dry Eye Exam: Positive for: Normal appearance, EOMI, PERRL Neck: Positive for: Normal, Painless ROM, Supple Gastrointestinal/Abdominal: Positive for: Normal Exam, Soft. Negative for: Tenderness, Mass, Guarding, Rebound Back: Positive for: Vertebral Tenderness (midline to lumbar and paraspinal). Negative for: L CVA Tenderness, R CVA Tenderness, Other ((-) straight-leg raise bilaterally) Extremity: Positive for: Normal ROM (upper/lower with 5/5 strength). Negative for: Deformity Neurologic/Psych: Positive for: Alert, Oriented. Negative for: Motor/Sensory Deficits - Laboratory Results Urine POC: Negative - ECG O2 Sat by Pulse Oximetry: 99 (RA) Pulse Ox Interpretation: Normal Medical Decision Making Medical Decision Making: Time: 1510 Initial Impression: Low back pain Differential diagnosis includes but not limited to: occult fracture; degenerative disc disease; lumbar spine sprain Initial Plan: * Urine dipstick * Urine * Lidoderm * Toradol 30mg IM * Tylenol 975mg PO * XR LS spine * LUMBAR SPINE XR FINDINGS: BONES: No acute compression fractures no retropulsed fragments. Slight straightening of the normal cervical lordosis likely due to patient positioning however muscle spasm not excluded. Muscle spasm not excluded. DISC SPACES: Unremarkable. OTHER FINDINGS: None. IMPRESSION: No acute fractures. Mild straightening of the normal lumbar lordosis as above. DW pt findings. Pt improved on reexam. Stable for discharge with outpatient followup for further management/evaluation. Scribe Attestation: Documented by Ofe Guaman, acting as a scribe for Judit Turner MD. Provider Scribe Attestation: All medical record entries made by the Scribe were at my direction and personally dictated by me. I have reviewed the chart and agree that the record accurately reflects my personal performance of the history, physical exam, medical decision making, and the department course for this patient. I have also personally directed, reviewed, and agree with the discharge instructions and disposition. Disposition - Clinical Impression Clinical Impression: Low back pain - Disposition Referrals: [facility] [Outside] Disposition: Routine/Home Disposition Time: 17:00 Condition: STABLE Additional Instructions: LLAME A LA [facility] POR LA VALDE[facility] A HACER FLORI KALYANI EN 5-7 JACKSON A CHEQAR DE NUEVO JOVANNA MEDICAMENTOS A RECETO NO LEV[place]ALE ALGUNAS CON MUCHO PESAS Prescriptions: Cyclobenzaprine [Flexeril] 5 mg PO Q8 PRN #10 tab PRN Reason: muscle spasm RX: Ibuprofen [Motrin Tab] 600 mg PO Q8 PRN #30 tab PRN Reason: Pain, Moderate (4-7) Lidocaine 5% [Lidoderm] 1 ea TD DAILY PRN #10 patch PRN Reason: PAIN Instructions: Low Back Pain (DC) Forms: [facility] ED School/Work Excuse Print Language: JORDANIAN
--- NOTE | 2018-03-05 16:11 | RAD ---
Date of service: 03/05/2018 PROCEDURE: Radiographs of the Lumbar Spine. HISTORY: Low back pain COMPARISON: No prior. FINDINGS: BONES: No acute compression fractures no retropulsed fragments. Slight straightening of the normal cervical lordosis likely due to patient positioning however muscle spasm not excluded. Muscle spasm not excluded. DISC SPACES: Unremarkable. OTHER FINDINGS: None. IMPRESSION: No acute fractures. Mild straightening of the normal lumbar lordosis as above.
== END 2018-03-05 18:00 | disposition home or self-care (01) ==
LOC: H.ER 14:32
DX: M54.5 Low back pain (principal)
CPT/HCPCS: 72100; 81025; 96372; 99285; J1885